=== PATIENT | male | born 1960 | race Caucasian/White ===

== ENCOUNTER 2017-01-31 09:14 | Emergency (ER) | payer OTHER ==
[~2017-01-31] VITALS: Ht 180.3 cm; Wt 82.7 kg
[2017-01-31] VITALS (8 sets, daily range): BP systolic 123–185; BP diastolic 85–123; PULSE 60–78; RESP 12–18; O2SAT 94–99
[~2017-01-31 09:14] MED LIST: ASPI325T32 PO; HYDR2TAB27 PO; LOSA25TA21 PO; OMEG1CAP99 PO; OMEP40CA36 PO; VERA40TA2 PO
[2017-01-31] MEDS ORDERED: Labetalol 5 mg/mL 4 mL Inj IVPUSH ONE (09:45)
[2017-01-31 09:58] LABS: BASOPHILS % (AUTO) 0.2 % (0-3); EOSINOPHILS % (AUTO) 1.2 % (0-5); MONOCYTES % (AUTO) 11.1 % (4-12); Mean Corpuscular Hemoglobin 26.9 pg (27.0-35.0); Mean Corpuscular Volume 78.8 fL (81-100); NEUTROPHILS % (AUTO) 69.5 % (40-74); Platelet Count 315 bil/L (150-400)
[2017-01-31] MEDS ORDERED: HYDROmorphone 0.5 mg/0.5 mL iSecure Syringe IVPUSH ONE ×2 (10:00→10:05)
[2017-01-31] MEDS ORDERED: Labetalol 5 mg/mL 20 mL Inj IV STA (10:16)
[2017-01-31 10:19] LABS: TROPONIN T 0.01 ug/L (0.0-0.011)
--- NOTE | 2017-01-31 10:27 | ED.REPORT ---
HPI-General Illness Date of Service Jan 31, 2017 ED Provider: Simran Maciel MD Pt is a 56 year old male with a history of HTN, aneurysm, cholecystectomy, and CVA who presents to the ED complaining of headache onset 2 days ago. He c/o associated chest pain, elevated blood pressure, and blurred vision bilaterally. He denies any other symptoms. The pt reports that his blood pressure was 250/ 111 at home today, and that it was 178/111 for the past 2 days. Per pt, he takes verapamil 40 mg in the morning and Losartan 25 mg at night. He denies taking pain medication regularly. Nursing Notes Stated Complaint: HIGH BLOOD PRESSURE Chief Complaint: General Complaint Nursing Notes Reviewed: Yes Allergies: Coded Allergies: Sulfa (Sulfonamide Antibiotics) (Verified Allergy, Severe, ALTERED HEART RATE, 04/26/16) cephalexin (Verified Allergy, Severe, HIVES, 06/04/16) diazepam (Verified Allergy, Severe, hives, anger, suicide thoughts, ) divalproex sodium (Verified Allergy, Severe, 06/04/16) gabapentin (Verified Allergy, Severe, SEIZURES, 06/04/16) lamotrigine (Verified Allergy, Severe, HIVES, 06/04/16) propranolol (Verified Allergy, Severe, HIVES, 06/04/16) oxycodone (Verified Allergy, Mild, rash, 06/04/16) aripiprazole (Verified Allergy, Unknown, UNKNOWN, 06/04/16) asenapine maleate (Verified Allergy, Unknown, UNKNOWN, 06/04/16) carbamazepine (Verified Allergy, Unknown, 06/04/16) clonazepam (Verified Allergy, Unknown, 06/04/16) lithium (Verified Allergy, Unknown, 06/04/16) lurasidone (Verified Allergy, Unknown, UNKNOWN, 06/04/16) olanzapine (Verified Allergy, Unknown, 06/04/16) quetiapine fumarate (Verified Allergy, Unknown, UNKNOWN, 06/04/16) topiramate (Verified Allergy, Unknown, UNKNOWN, 06/04/16) Scheduled Aspirin (Aspirin) 325 Mg Tablet 325 MG PO DAILY Hydromorphone (Dilaudid) 2 Mg Tablet 1 MG PO Q6HPRN Losartan Potassium (Losartan Potassium) 25 Mg Tablet 25 MG PO evening Fine-3 Fatty Acids/Fish Oil (Fish Oil 1,200 mg Softgel) 1 Each Capsule 1 EACH PO DAILY Omeprazole (Omeprazole) 40 Mg Capsule. 40 MG PO BID Verapamil (Verapamil) 40 Mg Tablet 40 MG PO DAILY Scheduled PRN Hydromorphone (Dilaudid) 2 Mg Tablet 2-4 MG PO Q4H PRN PRN Pain General Time Seen by MD: 09:36 Chief Complaint Headache Hx Obtained From: Patient Arrived By: Walk-in Sudden in Onset?: No Onset Occurred: 2 days ago Symptom Duration: Since onset Location: : Head Quality: Painful Severity: Current: Moderate Severity: Maximum: Moderate Recent Healthcare: Recent doctor visit Similar Sx Previous: No Past Medical History Past Medical History Notes: Dr. Clarke, Neurosurgeon at [facility] PCP - Dr. Salgado Past Medical History Brain anuerysm Vertebral artery aneurysm Chronic back and neck pain Bipolar- no medications at this time. paroxysmal afib, on coumadin, prior cardiac ablation (followed by Dr Parikh) Reports: Hypertension, Stroke Past Surgical History Appendectomy Reports: Cholecystectomy (05/09) Family History Mother positive for stroke and pacemaker Reports: Stroke Smoking History Former Smoker Social History Alcohol Use: Denies alcohol use Drug Use: THC Other Social History: Lives alone, Local resident Ambulatory Status Independent Review of Systems Full Review of Systems Constitutional: Denies: Fever Eyes: Reports: Blurred bilateral Respiratory: Denies: Non-productive cough Cardiovascular: Reports: Chest pain Neurologic: Reports: Headache Complete sys rev & neg: except as marked. Physical Exam Vital Signs Vital Signs Date Time Temp Pulse Resp B/P Pulse Ox O2 Delivery O2 Flow Rate FiO2 01/31/17 13:35 75 18 168/105 98 Room Air 01/31/17 12:11 60 18 123/91 97 Room Air 01/31/17 10:53 70 16 127/85 95 Room Air 01/31/17 10:31 67 12 130/85 96 01/31/17 10:30 69 12 135/92 94 01/31/17 09:30 77 185/116 01/31/17 09:17 36.7 78 18 182/123 99 Room Air Initial VS: Reviewed Neck: Supple, Full range of motion Respiratory: Breath sounds normal, Clear to auscultation, No respiratory distress Cardiovascular: Regular rate & rhythm, Heart sounds normal, Intact distal pulses Abdomen / GI: Soft, Non-tender Skin: Warm, Dry, No cyanosis Neurologic: Alert, Oriented, Nonfocal Psychiatric: Mood/affect normal, Behavior normal General/Constitutional: Awake, Alert Head / Eyes: Atraumatic, Normocephalic, PERRL Lower Extremity / Pelvis / MS: Neurologic intact, Vascular intact, No edema Neurologic: Oriented X3 (non-focal exam) Interpretation & Diagnostics Lab Results Interpretation Result Diagram: 01/31/17 0935 01/31/17 0935 Test 01/31/17 09:35 White Blood Count 12.0th/mm3 (3.8-10.1) Red Blood Count 5.43mil/mm3 (4.40-5.80) Hemoglobin 14.6g/dL (13.8-17.2) Hematocrit 42.8% (41.0-50.0) Mean Corpuscular Volume 78.8fL (81-100) Mean Corpuscular Hemoglobin 26.9pg (27.0-35.0) Mean Corpuscular Hemoglobin Concent 34.1% (32.0-37.0) Red Cell Distribution Width 16.3% (12.3-15.4) Platelet Count 315bil/L (150-400) Neutrophils (%) (Auto) 69.5% (40-74) Lymphocytes (%) (Auto) 17.4% (14-46) Monocytes (%) (Auto) 11.1% (4-12) Eosinophils (%) (Auto) 1.2% (0-5) Basophils (%) (Auto) 0.2% (0-3) Sodium Level 137mEq/L (134-144) Potassium Level 4.1mEq/L (3.5-5.2) Chloride Level 98mEq/L (97-108) Carbon Dioxide Level 20mmol/L (18-29) Blood Urea Nitrogen 8mg/dL (6-24) Creatinine 0.96mg/dL (0.76-1.27) Estimat Glomerular Filtration Rate 86mL/min (>59) Glucose Level 109mg/dL (60-99) Calcium Level 10.2mg/dL (8.5-10.1) Magnesium Level 2.1mg/dL (1.6-2.6) Total Bilirubin 1.4mg/dL (0.0-1.2) Aspartate Amino Transf (AST/SGOT) 223U/L (0-50) Alanine Aminotransferase (ALT/SGPT) 186U/L (0-44) Alkaline Phosphatase 182U/L (25-150) Troponin T 0.010ug/L (0.0-0.011) Total Protein 8.1g/dL (6.4-8.4) Albumin 4.5g/dL (3.4-5.0) Hold Castillo Top Tube Received (Received) ECG Interpretation ECG Interpretation: Sinus rhythm with a rate of 69 Time: 09:38 Interpreted by: ED physician X-Ray Chest Interpretation Chest Xray Interpretation: IMPRESSION: No acute disease Dictated by: Bg Reaves M.D. on 01/31/2017 at 11:03 View: Portable, 1 view Interpretation / Wet Read by: Interpret - Radiologist CT Abd / Pelvis Interpretation IMPRESSION: No acute abnormality identified. Appendix not definitely identified however no suspicious pericecal changes. Recommend clinical and laboratory correlation. Bilateral renal cysts. Mild hepatic steatosis. Status post cholecystectomy. Dictated by: Bg Reaves M.D. on 01/31/2017 at 13:41 Study type: Abdominal CT IV contrast Interpretation / Wet Read by: Interpret - Radiologist Re-Eval/Medical Decision Med Decision/Clinical Course Hypertension with dull headache for the last 48-72 hours. Nonspecifically complaining of abdominal pain but does note that something changed on her about Tuesday. Labs today are significant for elevated bilirubin AST ALT and alkaline phosphatase suggesting an obstructive biliary type pattern. Ultrasound from March 2015 does show multiple gallstones at that time. I am wondering if he may have some type of gallstone obstruction that is causing pain that elevating his blood pressure. 20 mg of labetalol has helped significantly with blood pressure control. We will repeat a CT scan of the abdomen to see if we can find any underlying pathology Source of Hx: Old records Time of Eval: 12:37 Patient Status: Condition improved Re-Evaluation/Progress Note: Pt rechecked. Pt reports incomplete bowel movements. His headache is still presents with mild improvements, his blood pressure has mildly improved, and he has mild upper quadrant tenderness that has improved. Informed pt of plan for further assessment. Pt understands and agrees with plan for assessment. All questions were answered. Time of Eval: 14:25 Re-Evaluation/Progress Note: Pt rechecked. Informed pt of plan for discharge. Pt understands and agrees with plan for discharge. F/U instructions and RTER warnings given. All questions addressed. Counseled Regarding: Diagnosis, Lab results, Need for follow-up, When/why to return to ED Discharge & Departure Primary Impression: Hypertension Additional Impression: Elevated transaminase level Ruled Out: Pancreatitis, Gall stones, common bile duct, Hypertensive crisis, Stroke Disposition: Home Discharge Condition All VS Reviewed: Yes Condition: Stable Patient Instructions: Hypertension (ED) Additional Instructions: I think your severe hypertension over the last days is due to pain from your headache. With the elevated liver tests, I am wondering if a virus is causing some of these symptoms. Your CT scan does not suggest acute liver issues, tumors, masses or other obstruction. Please use 2-4mg of Dilaudid to help the pain and control the blood pressure. Continue all of your blood pressure medications. If you get worse, more belly pain, fever, notice more yellow color to your skin or any other concerns, please return to the ER. Referrals: Glenn Salgado MD (PCP) Scribe Attestation Portions of this note were transcribed by Rashmi Sparks. I, Dr. Maciel personally performed the history, physical exam and medical decision-making; I reviewed and confirmed the accuracy of the information in the transcribed note. Signed by: Keli Sheldon, 01/31/17 and 13:50. copies to: Glenn Salgado MD, Shawna L MD Jan 31, 2017 10:27 Rashmi Pandey Jan 31, 2017 10:33
[2017-01-31 10:30] LABS: Magnesium 2.1 mg/dL (1.6-2.6)
--- NOTE | 2017-01-31 11:07 | DRSVH ---
PROCEDURE: X-RAY CHEST ONE VIEW, PORTABLE ([id number]) INDICATIONS: hypertension TECHNIQUE: One view of the chest was acquired. COMPARISON: [facility], CR, XR CHEST 2VW, 04/27/2016, 8:13. [facility], CR, XR CHEST 1VW (PORTABLE), 06/26/2016, 14:18. FINDINGS: Surgical changes and devices: None. Lungs and pleura: No pleural effusions or pneumothorax. Lungs are clear. Mediastinum: Mediastinal contours appear normal. Heart size is normal. Bones and chest wall: No suspicious bony lesions. Overlying soft tissues appear unremarkable. IMPRESSION: No acute disease Dictated by: Bg Reaves M.D. on 01/31/2017 at 11:03 Approved by: Bg Reaves M.D. on 01/31/2017 at 11:05
--- NOTE | 2017-01-31 13:59 | DRSVH ---
PROCEDURE: CT ABDOMEN AND PELVIS WITH CONTRAST ([id number]) INDICATIONS: elevated bili/transaminases/alk phos TECHNIQUE: After the administration of intravenous contrast, 5 mm thick sections acquired from the diaphragm to the symphysis. 5 mm coronal and sagittal reformats were acquired. For radiation dose reduction, the following was used: automated exposure control, adjustment of mA and/or kV according to patient siz e. COMPARISON: None. FINDINGS: Image quality: Excellent. ABDOMEN: Lung bases: Lung bases are clear. Heart size is normal. Solid organs: Nonspecific 2 mm subcapsular hypodensity in the right lobe on image 15, too small to c haracterize. Mild hepatic steatosis. Liver and spleen are normal in size and enhancement. Gallbladde r surgically absent. Biliary system is non dilated. Pancreas enhances normally. No adrenal nodules . Kidneys demonstrate normal size and enhancement, without hydronephrosis. Bilateral renal cysts ar e present although some of these are too small to characterize definitively. Peritoneum and bowel: Bowel loops demonstrate normal wall thickness and caliber. No free fluid or a ir. The appendix is not clearly identified however no suspicious pericecal inflammatory changes. The rectum is decompressed otherwise unremarkable. Nodes and vessels: No retroperitoneal or mesenteric adenopathy by size criteria. Minimal ectasia of the aorta measuring 2.4 cm Miscellaneous: No ventral hernias. PELVIS: Genitourinary: Bladder wall thickness is normal. Miscellaneous: No inguinal hernias or adenopathy. Bones: No suspicious bony lesions. No vertebral body compression fractures. IMPRESSION: No acute abnormality identified. Appendix not definitely identified however no suspicious pericecal changes. Recommend clinical and la boratory correlation. Bilateral renal cysts. Mild hepatic steatosis. Status post cholecystectomy. Dictated by: Bg Reaves M.D. on 01/31/2017 at 13:41 Approved by: Bg Reaves M.D. on 01/31/2017 at 13:57
[2017-01-31] MEDS ORDERED: HYDR2TAB27 PO (15:08)
[2017-01-31] MEDS ORDERED: Ondansetron 2 mg/mL 2 mL Inj ONE (15:35)
== END 2017-01-31 15:45 | disposition home or self-care (01) ==
LOC: SED 09:14
DX: I11.9 Hypertensive heart disease without heart failure (principal); R74.0 Nonspecific elevation of levels of transaminase and lactic acid dehydrogenase [LDH]; H53.8 Other visual disturbances; R07.9 Chest pain, unspecified; I48.0 Paroxysmal atrial fibrillation; F31.9 Bipolar disorder, unspecified; Z86.73 Personal history of transient ischemic attack (TIA), and cerebral infarction without residual deficits; Z79.82 Long term (current) use of aspirin; Z79.01 Long term (current) use of anticoagulants; Z87.891 Personal history of nicotine dependence; Z88.1 Allergy status to other antibiotic agents; Z88.2 Allergy status to sulfonamides; Z88.5 Allergy status to narcotic agent; Z88.8 Allergy status to other drugs, medicaments and biological substances
CPT/HCPCS: 36415; 71010; 74177; 80053; 83735; 84484; 85025; 93005; 96374; 96375; 99285; J1170; Q9967